=== PATIENT | female | born 1980 | race Caucasian/White ===

== ENCOUNTER 2017-06-24 14:40 | Outpatient (CLI) | payer OTHER ==
[2017-06-24 15:13] LABS: CALCIUM 9.2 mg/dL (8.5-10.3); CREATININE 0.6 mg/dL (0.4-1.0)
[2017-06-24 15:14] LABS: BASOPHILS # (AUTO) 0.1 10^3/uL (0.0-0.1); BASOPHILS % (AUTO) 0.5 %; EOSINOPHILS # (AUTO) 0.3 10^3/uL (0.0-0.7); EOSINOPHILS % (AUTO) 2.6 %; HGB - HEMOGLOBIN 10.4 g/dL (12.0-16.0); LYMPHOCYTES % (AUTO) 10.7 %; MEAN CORPUSCULAR HGB CONC 34.6 g/dL (32.0-36.0); MEAN CORPUSCULAR VOLUME 89.6 fL (81.0-99.0); MEAN PLATELET VOLUME 7.5 fL (7.9-10.8); MONOCYTES # (AUTO) 0.5 10^3/uL (0.0-1.0); MONOCYTES % (AUTO) 5.2 %; NEUTROPHILS # (AUTO) 7.7 10^3/uL (1.5-6.6); PLT - PLATELET COUNT 546 10^3/uL (130-450); RED BLOOD COUNT 3.35 10^6/uL (4.20-5.40); RED CELL DISTRIBUTION WIDTH 15.7 % (12.0-15.0); WHITE BLOOD COUNT 9.5 x10^3/uL (4.8-10.8)
[2017-06-24 15:31] LABS: HCG UR QUAL NEGATIVE
== END 2017-06-24 14:41 | disposition home or self-care (01) ==
LOC: LAB 14:40
PROVIDERS: ATTEND Obstetrics & Gynecology
DX: N87.9 Dysplasia of cervix uteri, unspecified (principal)
CPT/HCPCS: 36415; 80048; 81025; 85025; 86850; 86900; 86901

== ENCOUNTER 2017-06-25 06:08 | Day surgery (SDC) | payer OTHER ==
--- NOTE | 2017-06-24 21:46 | PREOP HISTORY & PHYSICAL ---
DATE OF SERVICE: 06/25/2017 Physician: Hudson Pablo MD PATIENT IDENTIFICATION: The patient is a 37-year-old G3, P1, AB2 female ,who presents for a preoperative history and physical. CHIEF COMPLAINT: Recurrent dysplasia. HISTORY OF PRESENT ILLNESS: The patient has had a problem with recurrent cervical dysplasia. Her last episode, she had biopsies which showed GONZALEZ 3. Her LEEP procedure also confirmed this; however, the ECC was negative and the margins were negative. At this particular point, the patient is requesting a hysterectomy for resolution of this problem. She also has difficulty with some irregular cycles. She had been placed on control pills in the past for cycle control. PAST MEDICAL HISTORY 1. Positive for seizures in the distant past. 2. She also has difficult hypercholesterolemia. PAST SURGICAL HISTORY 1. Positive for tubal ligation. 2. Breast biopsy. 3. The patient has had a breast augmentation done roughly 2 weeks ago. CURRENT MEDICATIONS: Avastatin. ALLERGIES: SULFA. HABITS: The patient denies used tobacco, has quit. She denies use of alcohol or any street or addictive drugs. SOCIAL HISTORY: The patient is and lives with her spouse and children, and works as a medical secretary receptionist. FAMILY HISTORY: Positive for mother who had diabetes as well as hypercholesterolemia. Father has had an HI as well as CVA. REVIEW OF SYSTEMS: Unremarkable at this time. PHYSICAL EXAMINATION GENERAL: The patient is a well-developed, well-nourished white female, in no acute distress at this time. VITAL SIGNS: Stable. HEENT: Pupils equal and round. Extraocular muscles are intact. Thyroid is not palpably enlarged. HEART: Regular rate and rhythm without murmurs. LUNGS: Lung albright are clear without rales or wheezes. BACK: No spinal or CVA tenderness noted. ABDOMEN: Shows scar from previous tubal ligation. There are no palpable masses. PELVIC: Examination previously performed showed normal cervix, which is well healed from her previous LEEP procedure. Uterus is not enlarged at this time. IMPRESSION: A 37-year-old G3, P1 female with recurrent cervical dysplasia. She is requesting a surgical procedure for resolution of this problem. She is aware that should her uterus be removed, she will never be able to have children again. Our plan is to remove the tubes, but leave the ovaries in place for their hormonal benefits. She is aware that there is a potential difficulty with diagnosing ovarian cancer in the future. However, since she is only 37 years of age, we are keeping her ovaries in place for hormonal benefit will be the consideration. PLAN: We will perform total laparoscopic vaginal hysterectomy with bilateral salpingectomy. Risks and benefits were explained to the patient, including those, but not limited to bleeding, infection, injury to the pelvic organs, which include the bowel, bladder, and ureters. She is aware of the potential for deep venous thrombosis with pulmonary embolism, as well as postop adhesion which can cause pain, bowel obstruction, and infertility. TD: 06/24/2017 21:46 MTDD
[2017-06-25] MEDS ORDERED: LACTATED RINGERS 1,000 ML IV ONE ×2 (06:30→08:57)
[2017-06-25] MEDS ORDERED: ceFAZolin 2 GM/50 ML 2 GM/50 ML BAG IV ONE (06:35)
[2017-06-25] MEDS ORDERED: SCOPOLAMINE PATCH TOP ONE (07:48)
[2017-06-25] MEDS ORDERED: BUPIVACAINE 0.5%-EPI 1:200000 PF 10 ML VIAL ONE (07:51)
[2017-06-25] MEDS ORDERED: BUPIVACAINE 0.25% PF 30 ML VIAL ONE (07:56)
[2017-06-25] MEDS ORDERED: EPINEPHrine 1 MG/ML AMP ONE (07:56)
[2017-06-25] MEDS ORDERED: ACETAMINOPHEN 1,000 MG/100 ML 100 ML IV ONE (08:00)
[2017-06-25] MEDS ORDERED: ONDANSETRON 4 MG/2 ML VIAL IVP ONE (08:00)
[2017-06-25] MEDS ORDERED: GLYCOPYRROLATE 1 MG/5 ML VIAL IVP ONE (08:00)
[2017-06-25] MEDS ORDERED: MIDAZOLAM 2 MG/2 ML VIAL IVP ONE (08:00)
[2017-06-25] MEDS ORDERED: DEXAMETHASONE 4 MG/ML VIAL IVP ONE (08:00)
[2017-06-25] MEDS ORDERED: NEOSTIGMINE 1 MG/1 ML 10 ML MDV IVP ONE (08:00)
[2017-06-25] MEDS ORDERED: ROCURONIUM 50 MG/5 ML VIAL IVP ONE (08:00)
[2017-06-25] MEDS ORDERED: PROPOFOL 200 MG/20 ML VIAL IVP ONE (08:00)
[2017-06-25] MEDS ORDERED: fentaNYL 250 MCG/5 ML VIAL IVP ONE (08:00)
[2017-06-25] MEDS ORDERED: BUPIVACAINE 0.25% PF 30 ML VIAL SUBQ ONE (08:30)
--- NOTE | 2017-06-25 11:22 | OPERATIVE REPORT ---
DATE OF SERVICE: 06/25/2017 Physician: Hudson Pablo MD PREOPERATIVE DIAGNOSIS: Recurrent cervical dysplasia. POSTOPERATIVE DIAGNOSIS: Recurrent cervical dysplasia. NAME OF PROCEDURE: Laparoscopically-assisted vaginal hysterectomy with bilateral salpingectomy. SURGEON: Hudson Pablo MD ANESTHESIA: Endotracheal. CONTROLS DESIGNER: Dr. Moreno ANCHOR OPERATOR: Lucy Casper [TIME: 00:37] FINDINGS: Normal pelvis. ESTIMATED BLOOD LOSS: 100 mL. INTRAVENOUS FLUIDS: 1900 mL. PROCEDURE: Following adequate endotracheal anesthesia, the patient was placed in a dorsal lithotomy position in [facility]. At this point, she was prepped and draped in the usual fashion. A timeout was performed, at which all concerns were addressed. The patient received prophylactic antibiotics prior to the anesthetic. At this point, a speculum was placed in the vagina. The cervix was visualized, grasped with a single-tooth tenaculum and then dilated up to a size 8 mm Hegar dilator. A HUMI catheter was then placed and inflated. The break and load operator's gloves were changed and a stab wound was made in the subumbilical region with a #15 blade. A 5 mm trocar was placed under direct visualization. A pneumoperitoneum was accomplished. Two additional ports were placed, both in the left and right lower quadrants following local anesthesia of 0.25% Marcaine with epinephrine. These were both done under direct visualization. At this point, the uterus was visualized. Photographs were taken of the liver, appendix, as well as the pelvis, tubes, ovaries, and anterior and posterior cul-de-sacs. The right fallopian tube was grasped and then cauterized in the mesosalpinx. Care was taken to avoid injury to the vasculature to the ovaries. This was carried all the way to the cornu, and then the uteroovarian ligament was cauterized and transected. Round ligament was cauterized, transected, and then the broad leaf ligament was opened both anteriorly and posteriorly. The anterior leaf was then carried across the lower uterus, and this was cauterized and transected utilizing LigaSure. Then, this was carried down the right side of the uterus and then the uterine vessels were identified, cauterized, and transected. Good hemostasis was observed. The left-hand side was treated in identical fashion. The tube was grasped, mesosalpinx cauterized and transected. Care was taken to avoid injury to the ovarian vessels. This was carried all the way to the cornu. The cornu was then cauterized and transected as well as the round ligament, which was doubly cauterized and transected. The anterior leaf of the broad ligament was opened, cauterized, transected, and this was carried all the way down to the bladder flap. The posterior leaf was likewise cauterized and transected. The uterine vessels were cauterized doubly and then transected. Good hemostasis was observed at this time. At this point, the operation was moved to the vagina. A weighted speculum was placed in the posterior vagina. The cervix was grasped with a thyroid Anthony clamp and then the cervix was circumscribed with the electrocautery. Then, utilizing both blunt and sharp dissection, the bladder was freed from the anterior lower uterine segment, as well as the cervix. The posterior cul-de-sac was entered using Villagomez scissors. The transverse cervical ligaments, were cross clamped with Nazia clamps, divided with Villagomez scissors and ligated with Nazia stitches with #0 Vicryl. There was some difficulty because of the length of the cervix to get into the posterior cul-de-sac, so additional clamps were placed in the transverse cervical ligament. These were likewise transected and then ligated with Nazia stitches of #0 Vicryl. The bladder flap was then developed all the way in the peritoneal cavity and this was noted to be in that area as CO2 escaped from the anterior dissection. The cul-de-sac was then entered using Villagomez scissors and a long-billed speculum was placed. The transverse cervical ligaments were then clamped, transected, and ligated with Nazia stitches of #0 Vicryl. The uterus was then freed from the pelvis. There was some bleeding in the posterior cuff. This was treated with electrocautery. The uterosacral ligaments were injected with 10 mL in each uterosacral ligament with 0.25% Marcaine with epinephrine. Care was taken to aspirate after each 2 mL to ensure that the injections were nonintravascular. At this point, a pursestring of #4-0 Monocryl was placed to close the peritoneal cavity over the vaginal stump. The vaginal stump was then closed utilizing interrupted sutures of 2-0 Vicryl. Good hemostasis was observed. At this point, attention was changed back to the abdominal laparoscopic ports, and the pelvis was revisualized. There was evidence of some ooze on the left uterine vessel area, so this was treated with the LigaSure. Care was taken to try and avoid any injury to the ureters. At this point, the pelvis was irrigated free. There was no evidence of any active bleeding. The CO2 was allowed to escape from the abdominal cavity. The ports were removed and then these were closed with Monocryl subcuticular with Dermabond being placed over the incisions. Cystoscope was then performed, at which time both ureters were noted to be patent with good flow through both ureters. Procedure was terminated at this time. The patient tolerated the procedure well, was taken to the recovery room in stable condition. Sponge and needle counts were correct. TD: 06/25/2017 11:21 MTDD
[2017-06-25 12:17] VITALS: BP 132/87
== END 2017-06-25 06:09 | disposition home or self-care (01) ==
LOC: SDS 06:08
PROVIDERS: ATTEND Obstetrics & Gynecology
PROC: 0UT9FZZ Resection of Uterus, Via Natural or Artificial Opening With Percutaneous Endoscopic Assistance (ICD-10-PCS; principal; 2017-06-25 07:30)
PROC: 0UT7FZZ Resection of Bilateral Fallopian Tubes, Via Natural or Artificial Opening With Percutaneous Endoscopic Assistance (ICD-10-PCS; 2017-06-25 07:30)
DX: N87.1 Moderate cervical dysplasia (principal)
CPT/HCPCS: 58552; J0131; J0690; J3010; J3490; J7120

== ENCOUNTER 2019-01-11 14:20 | Outpatient (CLI) | payer OTHER ==
--- NOTE | 2019-01-11 15:57 | XRAY Report ---
Reason: RADICULOPATHY AFFECTING THE ARM,PAIN IN RIGHT SHOU Procedure Date: 01/11/2019 Accession Number: [id number] / [id number] Procedure: XR - Cervical Spine 2 View CPT Code: FULL RESULT: EXAM: CERVICAL SPINE RADIOGRAPHY EXAM DATE: 01/11/2019 03:14 PM. CLINICAL HISTORY: Right arm and shoulder radiculopathy. COMPARISONS: None. TECHNIQUE: 3 views. FINDINGS: Alignment: Normal. No spondylolisthesis or scoliosis. Bones: The cervical vertebral bodies and posterior elements are well visualized from the skull base through C7-T1. No fractures or bone lesions. Disks: Normal. Disk heights are maintained. Facets: No degenerative disease. Soft Tissues: Normal. No prevertebral soft tissue swelling. The visualized lung apices are clear. IMPRESSION: Normal cervical spine radiography. RADIA
== END 2019-01-11 14:21 | disposition home or self-care (01) ==
LOC: DI 14:20
PROVIDERS: ATTEND Nurse Practitioner
DX: M54.12 Radiculopathy, cervical region (principal); M25.511 Pain in right shoulder
CPT/HCPCS: 72040

== ENCOUNTER 2019-02-12 08:27 | Outpatient (CLI) | payer OTHER ==
--- NOTE | 2019-02-12 13:57 | MRI Report ---
Reason: RT SHOULDER PAIN Procedure Date: 02/12/2019 Accession Number: [id number] / [id number] Procedure: MRI - Upper Arm/Humerus RT W/O CPT Code: Final Report FULL RESULT: EXAM: RIGHT HUMERUS MRI WITHOUT CONTRST EXAM DATE: 02/12/2019 10:13 AM. CLINICAL HISTORY: Right shoulder pain. Clinical concern for lesion. COMPARISON: Radiograph 02/04/2019. TECHNIQUE: Multiplanar, multisequence T1-weighted and fluid-sensitive sequences of the humerus/upper arm without contrast. Other: None. FINDINGS: Bones: No fractures or subluxations. No marrow edema. No bone lesions. The acromion is type II. Joint Spaces: Visualized portions of the shoulder and elbow joints are unremarkable. Tendons: Where visualized, the biceps tendons are intact Musculature: No edema or fatty atrophy. Other: The patient has a right breast implant. IMPRESSION: No MRI abnormalities in the humerus/upper arm. RADIA
== END 2019-02-12 08:28 | disposition home or self-care (01) ==
LOC: DI 08:27
PROVIDERS: ATTEND Orthopaedic Surgery Sports Medicine
DX: M25.511 Pain in right shoulder (principal)

== ENCOUNTER 2020-03-03 14:32 | Outpatient (CLI) | payer OTHER ==
--- NOTE | 2020-03-10 13:17 | Mammography Report ---
BILATERAL DIGITAL SCREENING MAMMOGRAM 3D/2D WITH AUGMENTATION: 03/03/2020 CLINICAL: Routine screening. Comparison is made to exam dated: 08/06/2011 mammogram - [facility]. The tissue of both breasts is heterogeneously dense. This may lower the sensitivity of mammography. Bilateral breast implants are present. No significant masses, calcifications, or other findings are seen in either breast. There has been no significant interval change. IMPRESSION: NEGATIVE There is no mammographic evidence of malignancy. A 1 year screening mammogram is recommended. This exam was interpreted at Station ID: [id number]. NOTE: For mammograms, a report in lay terms will be sent to the patient. Approximately 15% of breast malignancies will not be visualized mammographically. In the management of a palpable breast mass, a negative mammogram must not discourage biopsy of a clinically suspicious lesion. Electronically Signed By: Billy Todd M.D., jr/thai:03/08/2020 14:10:02 ACR BI-RADS Category 1: Negative 3341F PARENCHYMAL PATTERN: (D) - The breast(s) demonstrate(s) heterogeneously dense fibroglandular [place]. BI-RADS CATEGORY: (1) - 1 RECOMMENDATION: (ANNUAL) - Recommend routine annual screening mammography. [id number] 1 year screening LATERALITY: (B)
== END 2020-03-03 14:33 | disposition home or self-care (01) ==
LOC: DI 14:32
PROVIDERS: ATTEND Nurse Practitioner
DX: Z12.31 Encounter for screening mammogram for malignant neoplasm of breast (principal)
CPT/HCPCS: 77067

== ENCOUNTER 2020-12-30 11:47 | Emergency (ER) | payer OTHER ==
--- NOTE | 2020-12-30 12:27 | ED Physician Documentation ---
PD HPI FOCAL NEURO - Stated complaint Stated Complaint: BLACKING OUT/BLUR VISION - Chief complaint Chief Complaint: Neuro - History obtained from History obtained from: Patient - Additional information Additional information: Blurred vision x 9 days both eyes, eye twitchiness, sent from walk in clinic, concern for ?nystagmus. 11/21 assoc headache with light sensitivity, bifrontal. No relief with NSAIDs. No hx migraines. Reportedly seen at walk-in clinic and sent here for labs and MRI. Note that we do not have MRI today. Review of Systems Constitutional: denies: Fever, Chills Eyes: reports: Photophobia. 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, Other - Present Medications Home Medications: Ambulatory Orders Medication Instructions Recorded Confirmed Atorvastatin [Lipitor] 20 mg PO DAILY 12/30/20 12/30/20 Carvedilol [Coreg] 6.25 mg PO DAILY 12/30/20 12/30/20 Gabapentin [Neurontin] 300 mg PO DAILY 12/30/20 12/30/20 Metoclopramide [Reglan] 10 mg PO Q6H PRN #20 tablet 12/30/20 - Allergies Allergies/Adverse Reactions: Allergies Allergy/AdvReac Type Severity Reaction Status Date / Time Sulfa (Sulfonamide Allergy Rash Verified 12/30/20 11:58 Antibiotics) - Social History Does the pt smoke?: No Smoking Status: Never smoker PD ED PE NORMAL - Vitals Vital signs reviewed: Yes - General General: Alert and oriented X 3, No acute distress - HEENT HEENT: PERRL, EOMI, Other (No nystagmus) - Neck Neck: Supple, no meningeal sign, No bony TTP - Cardiac Cardiac: RRR, No murmur - Respiratory Respiratory: No respiratory distress, Clear bilaterally - Abdomen Abdomen: Normal bowel sounds, Soft, Non tender - Back Back: No CVA TTP, No spinal TTP - Derm Derm: Normal color, Warm and dry - Extremities Extremities: No edema, No calf tenderness / cord - Neuro Neuro: Alert and oriented X 3, Normal speech Eye Opening: Spontaneous Motor: Obeys Commands Verbal: Oriented GCS Score: 15 - Psych Psych: Normal mood, Normal affect Results - Vitals Vitals: Vital Signs - 24 hr 12/30/20 12/30/20 11:50 14:03 Temperature 37.3 C Heart Rate 86 67 Respiratory 16 16 Rate Blood Pressure 149/94 H 121/73 O2 Saturation 100 100 Oxygen O2 Source Room air - Labs Labs: Laboratory Tests 12/30/20 12/30/20 12/30/20 12:44 12:44 12:47 WBC 6.4 RBC 4.34 Hgb 13.6 Hct 40.1 MCV 92.4 MCH 31.3 H MCHC 33.9 RDW 11.9 L Plt Count 378 MPV 10.3 Neut # (Auto) 4.4 Lymph # (Auto) 1.5 Swisher # (Auto) 0.3 Eos # (Auto) 0.1 Baso # (Auto) 0.0 Absolute Nucleated RBC 0.00 Nucleated RBC % 0.0 Sodium Potassium Chloride Carbon Dioxide Anion Gap BUN Creatinine Estimated GFR (MDRD) Glucose Calcium Urine Color YELLOW Urine Clarity CLEAR Urine pH 7.0 Ur Specific [place] 1.015 Urine Protein NEGATIVE Urine Glucose (UA) NEGATIVE Urine Ketones NEGATIVE Urine Occult Blood NEGATIVE Urine Nitrite NEGATIVE Urine Bilirubin NEGATIVE Urine Urobilinogen 0.2 (NORMAL) Ur Leukocyte Esterase NEGATIVE Ur Microscopic Review NOT INDICATED Urine Culture Comments NOT INDICATED Urine HCG, Qual NEGATIVE Urine Opiates Screen NEGATIVE Ur Oxycodone Screen NEGATIVE Urine Methadone Screen NEGATIVE Ur Propoxyphene Screen NEGATIVE Ur Barbiturates Screen NEGATIVE Ur Tricyclics Screen NEGATIVE Ur Phencyclidine Scrn NEGATIVE Ur Amphetamine Screen NEGATIVE U Methamphetamines Scrn NEGATIVE U Benzodiazepines Scrn NEGATIVE Urine Cocaine Screen NEGATIVE U Cannabinoids Screen NEGATIVE 12/30/20 12:47 WBC RBC Hgb Hct MCV MCH MCHC RDW Plt Count MPV Neut # (Auto) Lymph # (Auto) Swisher # (Auto) Eos # (Auto) Baso # (Auto) Absolute Nucleated RBC Nucleated RBC % Sodium 139 Potassium 4.5 Chloride 103 Carbon Dioxide 28 Anion Gap 8.0 BUN 11 Creatinine 0.6 Estimated GFR (MDRD) 110 Glucose 93 Calcium 9.7 Urine Color Urine Clarity Urine pH Ur Specific [place] Urine Protein Urine Glucose (UA) Urine Ketones Urine Occult Blood Urine Nitrite Urine Bilirubin Urine Urobilinogen Ur Leukocyte Esterase Ur Microscopic Review Urine Culture Comments Urine HCG, Qual Urine Opiates Screen Ur Oxycodone Screen Urine Methadone Screen Ur Propoxyphene Screen Ur Barbiturates Screen Ur Tricyclics Screen Ur Phencyclidine Scrn Ur Amphetamine Screen U Methamphetamines Scrn U Benzodiazepines Scrn Urine Cocaine Screen U Cannabinoids Screen PD MEDICAL DECISION MAKING - ED course ED course: 40-year-old woman with blurry vision and eye twitchiness, normal exam here. Associated with a headache that could be migrainous. No relief with Imitrex. CT of the head and labs were normal. Discussed close follow-up and return precautions. Departure - Departure Disposition: 01 Home, Self Care Clinical Impression: Blurry vision, bilateral Headache Qualifiers: Headache type: other headache syndrome Qualified Code(s): G44.89 - Other headache syndrome Condition: Good Record reviewed to determine appropriate education?: Yes Instructions: ED Cephalgia Unspecified Prescriptions: Metoclopramide [Reglan] 10 mg PO Q6H PRN #20 tablet PRN Reason: nausea or headache Comments: Follow-up with your audio/video technician this coming week and your primary care physician as well. Return for new or worsening symptoms.
[2020-12-30 12:53] LABS: BASOPHILS % (AUTO) 0.6 %; EOSINOPHILS # (AUTO) 0.1 10^3/uL (0.0-0.7); EOSINOPHILS % (AUTO) 1.6 %; HCT - HEMATOCRIT 40.1 % (37.0-47.0); HGB - HEMOGLOBIN 13.6 g/dL (12.0-16.0); LYMPHOCYTES # (AUTO) 1.5 10^3/uL (1.5-3.5); LYMPHOCYTES % (AUTO) 23.5 %; MEAN CORPUSCULAR HEMOGLOBIN 31.3 pg (27.0-31.0); MEAN CORPUSCULAR HGB CONC 33.9 g/dL (32.0-36.0); MEAN CORPUSCULAR VOLUME 92.4 fL (81.0-99.0); MEAN PLATELET VOLUME 10.3 fL (7.9-10.8); MONOCYTES # (AUTO) 0.3 10^3/uL (0.0-1.0); MONOCYTES % (AUTO) 5.2 %; NEUTROPHILS # (AUTO) 4.4 10^3/uL (1.5-6.6); NEUTROPHILS % (AUTO) 68.9 %; PLT - PLATELET COUNT 378 10^3/uL (130-450); RED BLOOD COUNT 4.34 10^6/uL (4.20-5.40); RED CELL DISTRIBUTION WIDTH 11.9 % (12.0-15.0); WHITE BLOOD COUNT 6.4 x10^3/uL (4.8-10.8)
[2020-12-30 12:54] LABS: MUDS CUTOFF CONCENTRATIONS CUTOFF CONC BELOW:
[2020-12-30 13:01] LABS: CALCIUM 9.7 mg/dL (8.5-10.3); CREATININE 0.6 mg/dL (0.4-1.0); POTASSIUM 4.5 mmol/L (3.5-5.0)
[2020-12-30 13:08] LABS: BILIRUBIN,URINE NEGATIVE (NEGATIVE); GLUCOSE, URINE (UA) NEGATIVE (NEGATIVE); KETONES,URINE (UA) NEGATIVE (NEGATIVE); LEUKOCYTE ESTERASE, URINE NEGATIVE (NEGATIVE); NITRITE,URINE NEGATIVE (NEGATIVE); OCCULT BLOOD,URINE NEGATIVE (NEGATIVE); PROTEIN,URINE NEGATIVE (NEGATIVE); UROBILINOGEN,URINE 0.2 (NORMAL) E.U./dL (NORMAL)
[2020-12-30 13:09] LABS: CLARITY,URINE CLEAR (CLEAR); HCG UR QUAL NEGATIVE
--- NOTE | 2020-12-30 13:13 | CT Report ---
PROCEDURE: HEAD WO INDICATIONS: headache TECHNIQUE: Noncontrast 4.5 mm thick angled axial sections acquired from the foramen magnum to the vertex. For r adiation dose reduction, the following was used: automated exposure control, adjustment of mA and/or kV according to patient size. COMPARISON: None. FINDINGS: Image quality: There is streak artifact seen through the skull base. CSF spaces: Basal cisterns are patent. No extra-axial fluid collections. Ventricles are normal in size and shape. Brain: No midline shift. No intracranial masses or hemorrhage. Newby-white matter interface is norm al. Skull and face: Calvarium and visualized facial bones are intact, without suspicious lesions. Sinuses: Visualized sinuses and mastoids are clear. IMPRESSION: A cause of headache cannot be seen on these images. No intracranial hemorrhage is seen. No masses or mass effect can be seen. Reviewed by: Tommie Tsang MD on 12/30/2020 12:11 PM TOLU Approved by: Tommie Tsang MD on 12/30/2020 12:11 PM TOLU Station ID: [id number]
[2020-12-30 13:19] LABS: AMPHETAMINE SCREEN,URINE NEGATIVE (NEGATIVE); BARBITURATE SCREEN,UR NEGATIVE (NEGATIVE); BENZODIAZEPINES SCREEN, URINE NEGATIVE (NEGATIVE); COCAINE SCREEN URINE NEGATIVE (NEGATIVE); METHADONE SCREEN, URINE NEGATIVE (NEGATIVE); METHAMPHETAMINES SCREEN, URINE NEGATIVE (NEGATIVE); OPIATE SCREEN, URINE NEGATIVE (NEGATIVE); OXYCODONE SCREEN, URINE NEGATIVE (NEGATIVE); PROPOXYPHENE SCREEN, URINE NEGATIVE (NEGATIVE); THC CANNABINOID SCREEN, URINE NEGATIVE (NEGATIVE); TRICYCLIC ANTIDEPRESSANT,URINE NEGATIVE (NEGATIVE)
[2020-12-30] MEDS ORDERED: SUMAtriptan 6 MG/0.5 ML VIAL SUBQ STA (13:44)
[2020-12-30 14:05] VITALS: BP 121/73
[2020-12-30] MEDS ORDERED: METOCLOPRAMIDE 10 MG TABLET PO STA (14:34)
== END 2020-12-30 14:50 | disposition home or self-care (01) ==
LOC: ED 11:47
DX: H53.8 Other visual disturbances (principal); G44.89 Other headache syndrome
CPT/HCPCS: 36415; 70450; 80048; 80306; 81003; 81025; 85025; 96372; 99284; A9270; 81001; 87086

== ENCOUNTER 2021-04-26 08:00 | Outpatient (CLI) | payer OTHER | END 2021-04-26 23:59 | LOC: LAB.N 08:00 | PROVIDERS: ATTEND Nurse Practitioner | DX: R11.0 Nausea (principal); B34.9 Viral infection, unspecified; Z20.822 Contact with and (suspected) exposure to COVID-19 | CPT/HCPCS: 87070 ==

== ENCOUNTER 2021-05-06 08:00 | Outpatient (CLI) | payer OTHER | END 2021-05-06 23:59 | LOC: LAB.N 08:00 | PROVIDERS: ATTEND Physician Assistant | DX: U07.1 COVID-19 (principal) ==

== ENCOUNTER 2021-06-14 08:51 | Outpatient (CLI) | payer OTHER ==
--- NOTE | 2021-06-15 08:38 | Mammography Report ---
BILATERAL DIGITAL SCREENING MAMMOGRAM 3D/2D WITH AUGMENTATION: 06/14/2021 CLINICAL: Routine screening. Comparison is made to exams dated: 03/03/2020 mammogram, 08/06/2011 ultrasound, and 08/06/2011 mammogr am - [facility]. The tissue of both breasts is heterogeneously dense. This may low er the sensitivity of mammography. Bilateral retropectoral saline implants are stable and intact. There are multiple new round equal density asymmetries in the right breast middle depth superior emanuel on seen on the mediolateral oblique view only. Findings are seen only on tomography. No other significant masses, calcifications, or other findings are seen in either breast. IMPRESSION: INCOMPLETE: NEEDS ADDITIONAL IMAGING EVALUATION The multiple new round equal density asymmetries in the right breast are indeterminate. A diagnostic mammogram and ultrasound is recommended. This exam was interpreted at Station ID: [id number]. NOTE: For mammograms, a report in lay terms will be sent to the patient. Approximately 15% of breast malignancies will not be visualized mammographically. In the management of a palpable breast mass, a negative mammogram must not discourage biopsy of a clinically suspicious lesion. Electronically Signed By: Patricia genao/:06/14/2021 12:23:46 ACR BI-RADS Category 0: Incomplete 3340F PARENCHYMAL PATTERN: (D) - The breast(s) demonstrate(s) heterogeneously dense fibroglandular [place]. BI-RADS CATEGORY: (0) - 0 Mammo and [place] [id number] Immediate follow-up LATERALITY: (B)
== END 2021-06-14 08:52 | disposition home or self-care (01) ==
LOC: DI.N 08:51
PROVIDERS: ATTEND Nurse Practitioner
DX: Z12.31 Encounter for screening mammogram for malignant neoplasm of breast (principal); R92.8 Other abnormal and inconclusive findings on diagnostic imaging of breast

== ENCOUNTER 2021-08-29 08:00 | Outpatient (CLI) | payer OTHER | END 2021-08-30 23:23 | disposition home or self-care (01) | LOC: LAB.N 08:00 | PROVIDERS: ATTEND Registered Nurse | DX: J32.9 Chronic sinusitis, unspecified (principal) | CPT/HCPCS: 87077; 87081; 87181; 87640 ==

== ENCOUNTER 2022-01-16 08:26 | Outpatient (CLI) | payer OTHER ==
[2022-01-16 12:02] LABS: BASOPHILS % (AUTO) 0.6 %; EOSINOPHILS # (AUTO) 0.1 10^3/uL (0.0-0.7); EOSINOPHILS % (AUTO) 2.3 %; HCT - HEMATOCRIT 41.2 % (37.0-47.0); HGB - HEMOGLOBIN 13.8 g/dL (12.0-16.0); LYMPHOCYTES # (AUTO) 1.6 10^3/uL (1.5-3.5); LYMPHOCYTES % (AUTO) 30.4 %; MEAN CORPUSCULAR HEMOGLOBIN 30.9 pg (27.0-31.0); MEAN CORPUSCULAR HGB CONC 33.5 g/dL (32.0-36.0); MEAN CORPUSCULAR VOLUME 92.2 fL (81.0-99.0); MEAN PLATELET VOLUME 11.3 fL (7.9-10.8); MONOCYTES # (AUTO) 0.3 10^3/uL (0.0-1.0); MONOCYTES % (AUTO) 6.2 %; NEUTROPHILS # (AUTO) 3.1 10^3/uL (1.5-6.6); NEUTROPHILS % (AUTO) 60.1 %; PLT - PLATELET COUNT 368 10^3/uL (130-450); RED BLOOD COUNT 4.47 10^6/uL (4.20-5.40); RED CELL DISTRIBUTION WIDTH 11.9 % (12.0-15.0); WHITE BLOOD COUNT 5.1 x10^3/uL (4.8-10.8)
[2022-01-16 12:33] LABS: ALBUMIN 3.9 g/dL (3.2-5.5); ALKALINE PHOSPHATASE 57 IU/L (42-121); ALT ALANINE AMINOTRANSFERASE 18 IU/L (10-60); AST ASPARTATE AMINOTRANSFERASE 16 IU/L (10-42); BILIRUBIN,TOTAL 0.7 mg/dL (0.2-1.0); BUN - BLOOD UREA NITROGEN 11 mg/dL (6-20); CALCIUM 9.3 mg/dL (8.5-10.3); CARBON DIOXIDE - CO2 26 mmol/L (21-32); CHLORIDE 103 mmol/L (101-111); CHOL/HDL RATIO 2.8 (<4.4); CHOLESTEROL 170 mg/dL; CREATININE 0.6 mg/dL (0.4-1.0); GFR - MDRD 109 (>89); GLUCOSE 92 mg/dL (70-100); HDL CHOLESTEROL 60 mg/dL; LDL CHOLESTEROL,CALCULATED 85 mg/dL; LDL/HDL RATIO 1.4 (<4.4); POTASSIUM 4.1 mmol/L (3.5-5.0); SODIUM 136 mmol/L (135-145); THYROID STIMULATING HORMONE 1.76 uIU/mL (0.34-5.60); TOTAL PROTEIN 7.9 g/dL (6.7-8.2); TRIGLYCERIDES 125 mg/dL; VLDL CHOLESTEROL 25 mg/dL
== END 2022-01-16 08:27 | disposition home or self-care (01) ==
LOC: LAB.N 08:26
PROVIDERS: ATTEND Nurse Practitioner
DX: G45.3 Amaurosis fugax (principal); R53.83 Other fatigue; Z13.220 Encounter for screening for lipoid disorders
CPT/HCPCS: 36415; 80053; 80061; 82607; 83721; 84443; 85025; 85651; 86140

== ENCOUNTER 2022-02-12 07:13 | Outpatient (CLI) | payer OTHER ==
--- NOTE | 2022-02-12 08:56 | MRI Report ---
PROCEDURE: BRAIN WO INDICATIONS: AMAUROSIS FUGAX TECHNIQUE: Noncontrast axial T1 spin echo, axial T2 fast spin echo, sagittal and axial FLAIR, coronal T2 fast sp in echo, axial gradient echo, axial diffusion and ADC through the brain. COMPARISON: CT head dated 12/30/2020. FINDINGS: Image quality: Excellent. CSF Spaces: Basal cisterns are patent. No extra-axial fluid collections. Ventricles are normal in size and shape. Brain: No intracranial masses or hemorrhage. Newby/white matter interface is normal. Brainstem appe ars normal. Diffusion-weighted images demonstrate no acute ischemic insult. There is a tiny focal ar ea of increased T2 and FLAIR signal in the right medial thalamus. Given that the brain parenchyma oth erwise normal in appearance, this most likely represents a dilated perivascular space. A small chroni c lacunar infarction would have a similar appearance. Normal intravascular flow voids are present. Skull and face: Calvarium has normal marrow signal. Orbits appear normal. Sinuses: Sinuses and mastoids are clear. IMPRESSION: 1. A solitary tiny area of increased T2 signal in the medial right thalamus most likely represents a dilated perivascular space. 2. Otherwise unremarkable brain MRI. No evidence of acute intracranial process. Reviewed by: Daniel Bray MD on 02/12/2022 8:54 AM PDT Approved by: Daniel Bray MD on 02/12/2022 8:54 AM PDT Station ID: [id number]
--- NOTE | 2022-02-12 09:22 | Ultrasound Report ---
PROCEDURE: Carotid Doppler Complete INDICATIONS: AMAUROSIS FUGAX TECHNIQUE: Color and pulse Doppler interrogation was performed of both carotid systems, with image documentation and velocity measurements. COMPARISON: None. FINDINGS: Right side: Brachial blood pressure: 115/64 mm Hg. Common carotid artery peak systolic velocity: 122 cm/sec. Internal carotid artery peak systolic velocity: 102 cm/sec. Internal carotid artery end diastolic velocity: 27 cm/sec. External carotid artery peak systolic velocity: 45 cm/sec. ICA/CCA peak systolic ratio: 0.8 . Newby scale imaging description: Minimal plaque Percent internal carotid artery stenosis: Less than 50% . Vertebral artery: Flow direction is antegrade. Left side: Brachial blood pressure: 117/70 mm Hg. Common carotid artery peak systolic velocity: 135 cm/sec. Internal carotid artery peak systolic velocity: 102 cm/sec. Internal carotid artery end diastolic velocity: 40 cm/sec. External carotid artery peak systolic velocity: 94 cm/sec. ICA/CCA peak systolic ratio: 0.8 . Newby scale imaging description: Mild plaque Percent internal carotid artery stenosis: Less than 50% . Vertebral artery: Flow direction is antegrade. IMPRESSION: Less than 50% stenosis of the internal carotid arteries. Reviewed by: Mateo Purvis MD on 02/12/2022 9:20 AM PDT Approved by: Mateo Purvis MD on 02/12/2022 9:20 AM PDT Station ID: [id number]
== END 2022-02-12 07:14 | disposition home or self-care (01) ==
LOC: DI 07:13
PROVIDERS: ATTEND Nurse Practitioner
DX: I65.23 Occlusion and stenosis of bilateral carotid arteries (principal)
CPT/HCPCS: 93880

== ENCOUNTER 2022-06-13 19:50 | Emergency (ER) | payer OTHER ==
[2022-06-13 20:40] LABS: BILIRUBIN,URINE NEGATIVE (NEGATIVE); GLUCOSE, URINE (UA) NEGATIVE (NEGATIVE); KETONES,URINE (UA) NEGATIVE (NEGATIVE); LEUKOCYTE ESTERASE, URINE NEGATIVE (NEGATIVE); NITRITE,URINE NEGATIVE (NEGATIVE); OCCULT BLOOD,URINE NEGATIVE (NEGATIVE); PROTEIN,URINE NEGATIVE (NEGATIVE); UROBILINOGEN,URINE 0.2 (NORMAL) E.U./dL (NORMAL)
[2022-06-13 20:43] LABS: BASOPHILS % (AUTO) 0.5 %; EOSINOPHILS # (AUTO) 0.1 10^3/uL (0.0-0.7); EOSINOPHILS % (AUTO) 1.4 %; HCT - HEMATOCRIT 44.3 % (37.0-47.0); HGB - HEMOGLOBIN 14.7 g/dL (12.0-16.0); LYMPHOCYTES # (AUTO) 2.5 10^3/uL (1.5-3.5); LYMPHOCYTES % (AUTO) 30.3 %; MEAN CORPUSCULAR HEMOGLOBIN 29.8 pg (27.0-31.0); MEAN CORPUSCULAR HGB CONC 33.2 g/dL (32.0-36.0); MEAN CORPUSCULAR VOLUME 89.9 fL (81.0-99.0); MEAN PLATELET VOLUME 10.3 fL (7.9-10.8); MONOCYTES # (AUTO) 0.6 10^3/uL (0.0-1.0); MONOCYTES % (AUTO) 7.1 %; NEUTROPHILS % (AUTO) 60.5 %; PLT - PLATELET COUNT 437 10^3/uL (130-450); RED BLOOD COUNT 4.93 10^6/uL (4.20-5.40); RED CELL DISTRIBUTION WIDTH 11.9 % (12.0-15.0); WHITE BLOOD COUNT 8.3 x10^3/uL (4.8-10.8)
[2022-06-13 20:44] LABS: CLARITY,URINE CLEAR (CLEAR); HCG UR QUAL NEGATIVE
[2022-06-13 20:54] LABS: ALBUMIN 4.6 g/dL (3.2-5.5); BILIRUBIN,TOTAL 0.7 mg/dL (0.2-1.0); CALCIUM 9.9 mg/dL (8.5-10.3); CREATININE 0.8 mg/dL (0.4-1.0); POTASSIUM 3.7 mmol/L (3.5-5.0)
[2022-06-13] MEDS ORDERED: ONDANSETRON 4 MG/2 ML VIAL IVP STA (21:00)
--- NOTE | 2022-06-13 21:02 | ED Physician Documentation ---
History of Present Illness - Stated complaint Stated Complaint: LFT PX/N/V/H/BP - Chief complaint Chief Complaint: Abd Pain - Additonal information Additional information: 42-year-old female presents to the emergency department for evaluation of back pain and nausea. She states that about 5 days ago she had sudden pain in her back. It radiated across the lower thoracic spine. She did follow-up with her primary care provider a few days ago and was thought to perhaps have muscle spasms and she has been taking a muscle relaxer. She is also taking Motrin. She states that the back pain has improved though not fully abated. No falls or trauma. No saddle anesthesia. No fevers. Today she has been nauseated but has not had any vomiting. She does have a history of hypertension and checked her blood pressure at home and found that it was about 170. She typically takes carvedilol for hypertension control. She is denying chest pain or shortness of air. Review of Systems Constitutional: denies: Fever, Chills Eyes: reports: Reviewed and negative Nose: reports: Reviewed and negative Throat: reports: Reviewed and negative Cardiac: reports: Reviewed and negative Respiratory: reports: Reviewed and negative GI: reports: Nausea. denies: Abdominal Pain, Vomiting, Constipation, Diarrhea : reports: Reviewed and negative Skin: reports: Reviewed and negative Musculoskeletal: reports: Back pain Neurologic: reports: Reviewed and negative PD PAST MEDICAL HISTORY - Past Medical History Cardiovascular: Hypertension, High cholesterol Respiratory: None Endocrine/Autoimmune: None GI: None : None HEENT: Chronic vision loss Psych: None Musculoskeletal: None Derm: None - Past Surgical History /[employer]: Breast implants, Other - Present Medications Home Medications: Ambulatory Orders Medication Instructions Recorded Confirmed Atorvastatin [Lipitor] 20 mg PO DAILY 12/30/20 12/30/20 Carvedilol [Coreg] 6.25 mg PO DAILY 12/30/20 12/30/20 Gabapentin [Neurontin] 300 mg PO DAILY 12/30/20 12/30/20 Metoclopramide [Reglan] 10 mg PO Q6H PRN #20 tablet 12/30/20 Ondansetron Odt [Zofran] 4 mg TL Q6H PRN #10 tablet 06/13/22 - Allergies Allergies/Adverse Reactions: Allergies Allergy/AdvReac Type Severity Reaction Status Date / Time Sulfa (Sulfonamide Allergy Rash Verified 06/13/22 20:16 Antibiotics) - Social History Does the pt smoke?: No Smoking Status: Never smoker PD ED PE NORMAL - General General: Alert and oriented X 3, No acute distress - HEENT HEENT: PERRL, Moist mucous membranes - Neck Neck: Supple, no meningeal sign, No adenopathy - Cardiac Cardiac: RRR, No murmur - Respiratory Respiratory: No respiratory distress, Clear bilaterally - Abdomen Abdomen: Normal bowel sounds, Soft - Back Back: No CVA TTP, No spinal TTP (No tenderness elicited of the thoracic or lower lumbar spine. Full for range of motion for forward flexion. Normal gait. Motor strength is 5 of 5.) - Derm Derm: Normal color, Warm and dry, No rash - Extremities Extremities: No deformity, No tenderness to palpate, Normal ROM s pain - Neuro Neuro: Alert and oriented X 3, blood bank assistant 2-12 intact Eye Opening: Spontaneous Motor: Obeys Commands Verbal: Oriented GCS Score: 15 Results - Vitals Vitals: Vital Signs - 24 hr 06/13/22 20:12 Temperature 36.6 C Heart Rate 76 Respiratory 16 Rate Blood Pressure 176/103 H O2 Saturation 100 Oxygen O2 Source Room air - Labs Labs: Laboratory Tests 06/13/22 06/13/22 06/13/22 20:25 20:25 20:25 WBC 8.3 RBC 4.93 Hgb 14.7 Hct 44.3 MCV 89.9 MCH 29.8 MCHC 33.2 RDW 11.9 L Plt Count 437 MPV 10.3 Neut # (Auto) 5.0 Lymph # (Auto) 2.5 [place] # (Auto) 0.6 Eos # (Auto) 0.1 Baso # (Auto) 0.0 Absolute Nucleated RBC 0.00 Nucleated RBC % 0.0 Sodium 138 Potassium 3.7 Chloride 99 L Carbon Dioxide 29 Anion Gap 10.0 BUN 14 Creatinine 0.8 Estimated GFR (MDRD) 78 L Glucose 99 Calcium 9.9 Total Bilirubin 0.7 AST 36 ALT 39 Alkaline Phosphatase 109 Total Protein 9.0 H Albumin 4.6 Globulin 4.4 H Albumin/Globulin Ratio 1.0 Lipase 33 Urine Color YELLOW Urine Clarity CLEAR Urine pH 6.0 Ur Specific [place] 1.010 Urine Protein NEGATIVE Urine Glucose (UA) NEGATIVE Urine Ketones NEGATIVE Urine Occult Blood NEGATIVE Urine Nitrite NEGATIVE Urine Bilirubin NEGATIVE Urine Urobilinogen 0.2 (NORMAL) Ur Leukocyte Esterase NEGATIVE Ur Microscopic Review NOT INDICATED Urine Culture Comments NOT INDICATED Urine HCG, Qual 06/13/22 20:25 WBC RBC Hgb Hct MCV MCH MCHC RDW Plt Count MPV Neut # (Auto) Lymph # (Auto) [place] # (Auto) Eos # (Auto) Baso # (Auto) Absolute Nucleated RBC Nucleated RBC % Sodium Potassium Chloride Carbon Dioxide Anion Gap BUN Creatinine Estimated GFR (MDRD) Glucose Calcium Total Bilirubin AST ALT Alkaline Phosphatase Total Protein Albumin Globulin Albumin/Globulin Ratio Lipase Urine Color Urine Clarity Urine pH Ur Specific [place] Urine Protein Urine Glucose (UA) Urine Ketones Urine Occult Blood Urine Nitrite Urine Bilirubin Urine Urobilinogen Ur Leukocyte Esterase Ur Microscopic Review Urine Culture Comments Urine HCG, Qual NEGATIVE PD Medical Decision Making - ED course Complexity details: reviewed results, considered differential, d/w patient ED course: 42-year-old female presents to the emergency department for evaluation of 5 days of low back pain that occurred in the absence of trauma. No saddle anesthesia fevers loss of bowel or bladder incontinence. Patient has taken Motrin and Tylenol and followed up with her primary care doctor who started her on a muscle relaxer. The back pain has gotten better but today she noticed that she was nauseated without vomiting. She had no chest pain or shortness of air but she was checking her blood pressures at home and found that they were higher than they typically are. She is on carvedilol for hypertension. She does have a history of allergy to amlodipine and lisinopril. Here in the emergency department we did obtain a CBC and electrolytes. There were no acute worrisome findings per my interpretation. Clinically on exam I did not elicit any back pain. She had unremarkable cardiopulmonary exam and no abdominal tenderness thus advanced imaging was deferred clinically this history is not suspicious for spinal epidural abscess. She was given a single dose of Zofran which improved the nausea. At this time I suspect that she had nausea as a reaction to the muscle relaxer. I think is appropriate to continue the muscle relaxer at home in conjunction with a prescription for Zofran which will be sent to the [facility] in [place]. Though the patient does have elevated blood pressures here in the emergency department there is nothing to suggest endorgan damage and I will defer further treatment and management to her primary care provider. Patient is discharged home in stable condition with the usual emergent return precautions discussed. Departure - Departure Disposition: 01 Home, Self Care Clinical Impression: Nausea Low back pain Qualifiers: Chronicity: acute Back pain laterality: bilateral Sciatica presence: without sciatica Qualified Code(s): M54.50 - Low back pain, unspecified Hypertension Qualifiers: Hypertension type: primary hypertension Qualified Code(s): I10 - Essential (primary) hypertension Condition: Stable Record reviewed to determine appropriate education?: Yes Prescriptions: Ondansetron Odt [Zofran] 4 mg TL Q6H PRN #10 tablet PRN Reason: Nausea / Vomiting Comments: You came to the emergency department today because for about 5 days you have had some back pain that has seemed to get better. However when you followed up with your primary doctor the felt you would benefit from a muscle relaxer which I think is a reasonable all eternity for managing the back pain. Subsequently you have developed some nausea and have noticed your blood pressures are higher than they normally are. Here in the ER your CBC and electrolytes were essentially normal. Your back e xam as well as your abdominal exam were entirely normal as well. I suspect that you develop nausea as a reaction to the muscle relaxer. We did give you a dose of Zofran here in the ER and your symptoms are better. A prescription for Zofran has sent To [facility] [place] in [place]. Though you do have an elevated blood pressure today there is nothing to suggest endorgan damage or concerns with your heart or liver or kidneys. I would like you to follow-up your blood pressure readings with your primary care doctor at home to determine if further adjustments to your carvedilol should be considere d. Return to the ER if you develop any sudden severe chest pain, have fainting episodes severe shortness of air or any other emergent concerns.
[2022-06-13 21:55] VITALS: BP 131/96
== END 2022-06-13 21:53 | disposition home or self-care (01) ==
LOC: ED 19:50
DX: M54.50 Low back pain, unspecified (principal); R11.0 Nausea; I10 Essential (primary) hypertension
CPT/HCPCS: 36415; 80053; 81001; 81003; 81025; 83690; 85025; 87086; 96374; 99284

== ENCOUNTER 2023-03-12 09:47 | Outpatient (CLI) | payer OTHER ==
[2023-03-12 12:53] LABS: BASOPHILS % (AUTO) 0.3 %; EOSINOPHILS # (AUTO) 0.1 10^3/uL (0.0-0.7); EOSINOPHILS % (AUTO) 1.5 %; HCT - HEMATOCRIT 41.1 % (37.0-47.0); HGB - HEMOGLOBIN 13.2 g/dL (12.0-16.0); LYMPHOCYTES # (AUTO) 1.5 10^3/uL (1.5-3.5); LYMPHOCYTES % (AUTO) 24.8 %; MEAN CORPUSCULAR HEMOGLOBIN 30.2 pg (27.0-31.0); MEAN CORPUSCULAR HGB CONC 32.1 g/dL (32.0-36.0); MEAN CORPUSCULAR VOLUME 94.1 fL (81.0-99.0); MEAN PLATELET VOLUME 11.4 fL (7.9-10.8); MONOCYTES # (AUTO) 0.4 10^3/uL (0.0-1.0); MONOCYTES % (AUTO) 6.1 %; NEUTROPHILS % (AUTO) 67.1 %; PLT - PLATELET COUNT 382 10^3/uL (130-450); RED BLOOD COUNT 4.37 10^6/uL (4.20-5.40); RED CELL DISTRIBUTION WIDTH 12.1 % (12.0-15.0); WHITE BLOOD COUNT 5.9 x10^3/uL (4.8-10.8)
[2023-03-12 13:04] LABS: ALBUMIN 4.3 g/dL (3.2-5.5); ALBUMIN/GLOBULIN RATIO 1.3 (1.0-2.2); ALKALINE PHOSPHATASE 76 IU/L (42-121); ALT ALANINE AMINOTRANSFERASE 12 IU/L (10-60); AST ASPARTATE AMINOTRANSFERASE 13 IU/L (10-42); BILIRUBIN,TOTAL 0.5 mg/dL (0.2-1.0); BUN - BLOOD UREA NITROGEN 8 mg/dL (6-20); CALCIUM 9.7 mg/dL (8.5-10.3); CARBON DIOXIDE - CO2 28 mmol/L (21-32); CHLORIDE 104 mmol/L (101-111); CHOL/HDL RATIO 2.6 (<4.4); CHOLESTEROL 163 mg/dL; CREATININE 0.6 mg/dL (0.6-1.3); GFR - MDRD 109 (>89); GLUCOSE 88 mg/dL (74-104); HDL CHOLESTEROL 62 mg/dL; LDL CHOLESTEROL,CALCULATED 68 mg/dL; LDL/HDL RATIO 1.1 (<4.4); POTASSIUM 4.1 mmol/L (3.5-4.5); SODIUM 139 mmol/L (135-145); TOTAL PROTEIN 7.6 g/dL (6.4-8.9); TRIGLYCERIDES 165 mg/dL (48-352); VLDL CHOLESTEROL 33 mg/dL
[2023-03-12 13:05] LABS: THYROID STIMULATING HORMONE 1.28 uIU/mL (0.34-5.60)
== END 2023-03-12 09:48 | disposition home or self-care (01) ==
LOC: LAB.N 09:47
PROVIDERS: ATTEND Nurse Practitioner
DX: I10 Essential (primary) hypertension (principal); E78.5 Hyperlipidemia, unspecified; R53.83 Other fatigue
CPT/HCPCS: 36415; 80053; 80061; 83721; 84443; 85025

== ENCOUNTER 2023-07-16 13:48 | Outpatient (CLI) | payer OTHER ==
--- NOTE | 2023-07-18 11:34 | Mammography Report ---
BILATERAL DIGITAL SCREENING MAMMOGRAM 3D/2D WITH AUGMENTATION: 07/16/2023 CLINICAL: Routine screening. Family history of breast cancer. Comparison is made to exams dated: 05/01/2022 ultrasound, 05/01/2022 mammogram - [facility], 07/27/2021 ultrasound, 07/27/2021 mammogram - [facility], 06/14/2021 mammogram, and mammogram - [facility]. Both breasts are heterogeneously dense, which may obscure small masses (category c / 51-75% glandular tissue). Bilateral breast implants are present. No significant masses, calcifications, or other findings are seen in either breast. There has been no significant interval change. IMPRESSION: BENIGN There is no mammographic evidence of malignancy. A 1 year screening mammogram is recommended. Based on Tyrer-Cuzick model (a risk assessment model), the patient's lifetime risk is 20.7% and her 1 0 year risk is 4.0%. If a patient has an elevated risk, a more comprehensive evaluation should be con sidered and/or a referral to a genetic counselor. The [place] [employer], [place] [employer], and NCCN Guidelines advise the consideration of Breast MRI as an adjunct to screening mammog jaylon in patients whose "Lifetime risk to develop breast cancer" is 20% or higher. This exam was interpreted at Station ID: [id number]. NOTE: For mammograms, a report in lay terms will be sent to the patient. Approximately 15% of breast malignancies will not be visualized mammographically. In the management of a palpable breast mass, a negative mammogram must not discourage biopsy of a clinically suspicious lesion. Electronically Signed By: Isidro kennedy/thai:07/17/2023 10:06:17 letter sent: No_Letter ACR BI-RADS Category 2: Benign Finding(s) 3342F PARENCHYMAL PATTERN: (D) - The breast(s) demonstrate(s) heterogeneously dense fibroglandular parenchy ma. BI-RADS CATEGORY: (2) - 2 RECOMMENDATION: (ANNUAL) - Recommend routine annual screening mammography. [id number] 1 year screening LATERALITY: (B)
== END 2023-07-16 13:49 | disposition home or self-care (01) ==
LOC: DI.N 13:48
DX: Z12.31 Encounter for screening mammogram for malignant neoplasm of breast (principal); R92.333 Mammographic heterogeneous density, bilateral breasts; Z80.3 Family history of malignant neoplasm of breast

== ENCOUNTER 2023-08-04 12:03 | Outpatient (CLI) | payer OTHER ==
[~2023-08-04 12:03] MED LIST: GADOTERATE MEGLUMINE 10 MMOL/20 ML VIAL ONE
[2023-08-04] MEDS: GADOTERATE MEGLUMINE 10 MMOL/20 ML VIAL IVP ONE (14:08)
--- NOTE | 2023-08-06 10:00 | MRI Report ---
BREAST MRI OF BOTH BREASTS: 08/04/2023 CLINICAL: High risk screening. CONTRAST: clariscan 16ml TECHNIQUE: The patient was placed prone in a dedicated breast imaging coil. Precontrast axial STIR and 3D spoil ed GE without fat saturation sequences were obtained. Both before and after bolus injection of contr ast, sequential 1-minute axial 3D spoiled GE with fat saturation sequences for 3 time points, with mohr btraction images and maximum intensity projections (MIPs) generated. Delayed sagittal spoiled GE hero ges with fat saturation were also obtained. Computer-aided detection, including computer algorithm analysis of MRI image data for lesion detectio n and characterization, pharmacokinetic analysis, with further physician review for interpretation, w as performed. COMPARISON: Screening mammogram 07/16/2023 FINDINGS: Image quality: Excellent. There is prominent right and moderate left background parenchymal enhancement. Right breast: Intact breast implant. No suspicious mass or nonmass-like enhancement. Left breast: Intact breast implant. A round mass in the anterior inferolateral left breast measures 0.6 x 0.5 x 0.3 cm. Kinetic analysis demonstrates benign enhancement pattern with almost entirely mod erate initial enhancement and persistent delayed enhancement kinetics. There are no other unique foci of enhancement or suspicious nonmass-like enhancement in the left breast. Miscellaneous: No axillary or internal mammary chain adenopathy. Visible portions of the chest wall, heart, lungs, and liver are normal. IMPRESSION: INCOMPLETE: NEEDS ADDITIONAL IMAGING EVALUATION No suspicious mass or nonmasslike enhancement in either breast. Benign-appearing 0.6 cm inferolateral left breast mass is present. A second look ultrasound is recomm ended for further evaluation. Intact bilateral breast implants. BIRADS 0, left breast ultrasound is recommended. This exam was interpreted at Station ID: [id number]. Electronically Signed By: Patricia genao/:08/05/2023 11:20:23 ACR BI-RADS Category 0: Incomplete 3340F BI-RADS CATEGORY: (0) - 0 Ultrasound [id number] Immediate follow-up LATERALITY: (L)
== END 2023-08-04 12:04 | disposition home or self-care (01) ==
LOC: DI 12:03
PROVIDERS: ATTEND Nurse Practitioner
DX: Z12.31 Encounter for screening mammogram for malignant neoplasm of breast (principal); R92.8 Other abnormal and inconclusive findings on diagnostic imaging of breast; R92.30 Dense breasts, unspecified; Z98.82 Breast implant status
CPT/HCPCS: 77049; A9575

== ENCOUNTER 2023-08-22 13:39 | Outpatient (CLI) | payer OTHER ==
--- NOTE | 2023-08-25 09:29 | Ultrasound Report ---
LIMITED ULTRASOUND OF LEFT BREAST: 08/22/2023 CLINICAL: Patient returns today to evaluate a focal asymmetry in the left breast. Comparison is made to exams dated: 08/04/2023 breast MRI, 07/16/2023 mammogram, 05/01/2022 ultrasound, mammogram - [facility], 07/27/2021 ultrasound, and 07/27/2021 mammogram - [facility]. Color flow and real-time ultrasound of the left breast 4 o'clock region were performed. Newby scale i mages of the real-time examination were reviewed. There is a 0.6 cm x 0.6 cm x 0.3 cm oval mass with a circumscribed margin in the left breast at 4 o'c lock anterior depth 1 cm from the nipple. This oval mass is hypoechoic. This correlates with breast MRI findings. Color flow imaging demonstrates that there is no vascularity present. IMPRESSION: PROBABLY BENIGN The 0.6 cm circumscribed mass in the left breast resembles a fibroadenoma and is probably benign. A follow-up ultrasound in 6 months is recommended to demonstrate stability. Exam findings were conveyed to the patient. This exam was interpreted at Station ID: [id number]. Electronically Signed By: Robert Silverman M.D. slc/:08/22/2023 14:37:13 Ultrasound BI-RADS: 3 Probably benign BI-RADS CATEGORY: (3) - 3 Ultrasound [id number] 6 month follow-up LATERALITY: (B)
== END 2023-08-22 13:40 | disposition home or self-care (01) ==
LOC: DI 13:39
PROVIDERS: ATTEND Nurse Practitioner
DX: N63.23 Unspecified lump in the left breast, lower outer quadrant (principal)